=== PATIENT | female | born 1980 | race Caucasian/White ===

== ENCOUNTER 2019-06-04 07:01 | Observation (INO) | payer MEDICAID ==
[2019-06-04] MEDS ORDERED: Lactated Ringers 1,000 ML IV ONE (08:39)
[2019-06-04] MEDS ORDERED: Betamethasone Acetate/Betamethasone Sod Phosphate 30 MG/5 ML MDV IM ONE ×2 (08:47→09:15)
[2019-06-04] MEDS ORDERED: Magnesium Sulfate/Water 40 GM/1,000 ML BAG IV SCH (09:00)
[2019-06-04] MEDS ORDERED: Ampicillin 2 GM in Sodium Chloride 0.9% 100 ML IV ONE (09:00)
[2019-06-04] MEDS ORDERED: Sodium Chloride 0.9% 10 ML Syringe FLUSH PRN (09:29)
[2019-06-04] MEDS ORDERED: Azithromycin 1,000 MG in Sodium Chloride 0.9% 500 ML IV ONE (09:30)
--- NOTE | 2019-06-04 09:45 | PCM.LDHP ---
L&D History of Present Illness - General Date of Service: 06/04/19 Admit Problem/Dx: Patient Status Order with Admit Dx/Problem 06/04/19 08:50 Admission Status [Patient Status] [ADT] Routine 06/04/19 09:29 Patient Status [ADT] Routine Admission Diagnosis/Problem Admission Diagnosis/Problem labor - Related Data Allergies/Adverse Reactions: Allergies Allergy/AdvReac Type Severity Reaction Status Date / Time seasonal Allergy Sneezing Uncoded 06/01/19 01:57 Home Medications: Home Meds hydrOXYzine pamoate [Vistaril] 50 mg PO Q6H PRN 06/04/19 [History] H&P Review of Systems - Review of Systems: Review Of Systems: See Below General: Reports: No Symptoms HEENT: Reports: No Symptoms Pulmonary: Reports: No Symptoms Cardiovascular: Reports: No Symptoms Gastrointestinal: Reports: No Symptoms Genitourinary: Reports: No Symptoms Musculoskeletal: Reports: No Symptoms Skin: Reports: No Symptoms Psychiatric: Reports: No Symptoms Neurological: Reports: No Symptoms Hematologic/Lymphatic: Reports: No Symptoms Immunologic: Reports: No Symptoms L&D Exam - Exam Exam: See Below - Vital Signs Vital Signs: Last Vital Signs Temp 36.2 C 06/04/19 09:10 Pulse 77 06/04/19 09:20 Resp 16 06/04/19 09:20 BP 118/66 06/04/19 09:20 Pulse Ox 97 06/04/19 09:20 - OB Specific Contraction Intensity: Mild to Moderate Movement: Active Heart Tones: Present Presentation: Vertex - Vallejo Score Vallejo Score Cervix Position: Midposition Vallejo Score Consistency: Soft [place]lejo Score Effacement: 51-70% Vallejo Score Dilation: 1-2 cm Vallejo Score 's Station: -2 Vallejo Score Total: 7 - Exam General: Alert, Oriented HEENT: PERRLA, Conjunctiva Clear, EACs Clear, EOMI, Hearing Intact, Mucosa Moist & [place], Nares Patent, Normal Nasal Septum, Posterior Pharynx Clear, TMs Clear Neck: Supple, Trachea Midline Lungs: Clear to Auscultation, Normal Respiratory Effort Cardiovascular: Regular Rate, Regular Rhythm GI/Abdominal Exam: Normal Bowel Sounds, Soft, Non-Tender, No Organomegaly, No Distention, No Abnormal Bruit, No Mass, Pelvis Stable Rectal Exam: Normal Exam, Normal Rectal Tone Genitourinary: Normal external exam, Normal bimanual exam, Normal speculum exam , Cervical fluid, Other (pooling fluid in vaginal vault) Back Exam: Normal Inspection, Full Range of Motion Extremities: Normal Inspection, Normal Range of Motion, Non-Tender, No Pedal Edema, Normal Capillary Refill Skin: Warm, Dry, Intact Neurological: Cranial Nerves Intact, Reflexes Equal Bilateral Psychiatric: Alert, Normal Affect, Normal Mood - Patient Data Lab Results Last 24 hrs: Laboratory Results - last 24 hr 06/04/19 06/04/19 06/04/19 Range/Units 07:35 07:35 08:55 WBC 13.7 H (4.5-11.0) K/uL RBC 3.06 L (3.30-5.50) M/uL Hgb 9.0 L (12.0-15.0) g/dL Hct 27.8 L (36.0-48.0) % MCV 91 (80-98) fL MCH 29 (27-31) pg MCHC 32 (32-36) % Plt Count 273 (150-400) K/uL Neut % (Auto) 76 H (36-66) % Lymph % (Auto) 13 L (24-44) % Rains % (Auto) 9 H (2-6) % Eos % (Auto) 2 (2-4) % Baso % (Auto) 0 (0-1) % Sodium (140-148) mmol/L Potassium (3.6-5.2) mmol/L Chloride (100-108) mmol/L Carbon Dioxide (21-32) mmol/L Anion Gap (5.0-14.0) mmol/L BUN (7-18) mg/dL Creatinine (0.6-1.0) mg/dL Est Cr Clr Drug Dosing Estimated GFR (MDRD) (>60) Glucose (74-106) mg/dL Calcium (8.5-10.1) mg/dL Magnesium (1.8-2.4) mg/dL Total Bilirubin (0.2-1.0) mg/dL AST (15-37) U/L ALT (12-78) U/L Alkaline Phosphatase (46-116) U/L Total Protein (6.4-8.2) g/dL Albumin (3.4-5.0) g/dL Globulin (2.3-3.5) g/dL Albumin/Globulin Ratio (1.2-2.2) Urine Color Yellow Urine Appearance Clear Urine pH 7.0 (4.5-8.0) Ur Specific [place] 1.005 L (1.008-1.030) Urine Protein Negative (NEGATIVE) mg/dL Urine Glucose (UA) Normal (NEGATIVE) mg/dL Urine Ketones Negative (NEGATIVE) mg/dL Urine Occult Blood Negative (NEGATIVE) Urine Nitrite Negative (NEGATIVE) Urine Bilirubin Negative (NEGATIVE) Urine Urobilinogen Normal (NORMAL) mg/dL Ur Leukocyte Esterase Trace (NEGATIVE) Urine RBC 0-5 (0-5) Urine WBC 0-5 (0-5) Ur Epithelial Cells Rare Amorphous Sediment Not seen Urine Bacteria Rare Urine Mucus Not seen Membrane Rupture Positive H (NEGATIVE) 06/04/19 06/04/19 Range/Units 08:55 08:55 WBC (4.5-11.0) K/uL RBC (3.30-5.50) M/uL Hgb (12.0-15.0) g/dL Hct (36.0-48.0) % MCV (80-98) fL MCH (27-31) pg MCHC (32-36) % Plt Count (150-400) K/uL Neut % (Auto) (36-66) % Lymph % (Auto) (24-44) % Rains % (Auto) (2-6) % Eos % (Auto) (2-4) % Baso % (Auto) (0-1) % Sodium 138 L (140-148) mmol/L Potassium 3.2 L (3.6-5.2) mmol/L Chloride 106 (100-108) mmol/L Carbon Dioxide 25 (21-32) mmol/L Anion Gap 10.2 (5.0-14.0) mmol/L BUN 4 L (7-18) mg/dL Creatinine 0.6 (0.6-1.0) mg/dL Est Cr Clr Drug Dosing TNP Estimated GFR (MDRD) > 60 (>60) Glucose 69 L (74-106) mg/dL Calcium 8.5 (8.5-10.1) mg/dL Magnesium 1.6 L (1.8-2.4) mg/dL Total Bilirubin 0.4 (0.2-1.0) mg/dL AST 17 (15-37) U/L ALT 23 (12-78) U/L Alkaline Phosphatase 94 (46-116) U/L Total Protein 5.7 L (6.4-8.2) g/dL Albumin 2.1 L (3.4-5.0) g/dL Globulin 3.6 H (2.3-3.5) g/dL Albumin/Globulin Ratio 0.6 L (1.2-2.2) Urine Color Urine Appearance Urine pH (4.5-8.0) Ur Specific [place] (1.008-1.030) Urine Protein (NEGATIVE) mg/dL Urine Glucose (UA) (NEGATIVE) mg/dL Urine Ketones (NEGATIVE) mg/dL Urine Occult Blood (NEGATIVE) Urine Nitrite (NEGATIVE) Urine Bilirubin (NEGATIVE) Urine Urobilinogen (NORMAL) mg/dL Ur Leukocyte Esterase (NEGATIVE) Urine RBC (0-5) Urine WBC (0-5) Ur Epithelial Cells Amorphous Sediment Urine Bacteria Urine Mucus Membrane Rupture (NEGATIVE) Result Diagrams: 06/04/19 08:55 06/04/19 08:55 - Problem List (1) premature rupture of membranes SNOMED Code(s): 490330062, 476648109 ICD Code: O42.919 - PRETRM YVROSE ROM, UNSP TIME BETW RUPT AND ONST LABR, UNSP TRI Status: Acute Current Visit: Yes (2) Gastroschisis, , affecting care of mother, antepartum SNOMED Code(s): 882526652, 817943458 ICD Code: O35.8XX0 - MATERNAL CARE FOR OTH ABNORMALITY AND DAMAGE, UNSP Status: Acute Current Visit: Yes (3) uterine contractions in third trimester, antepartum SNOMED Code(s): 012581155, 027175000 ICD Code: O47.03 - FALSE LABOR BEFORE 37 COMPLETED WEEKS OF GEST, THIRD TRI Status: Acute Current Visit: No (4) care insufficient SNOMED Code(s): 8835252612997 ICD Code: O09.30 - SUPRVSN OF PREG W INSUFFICIENT ANTENAT CARE, UNSP TRIMESTER Status: Acute Current Visit: Yes (5) Drug abuse during SNOMED Code(s): 590726107 ICD Code: O99.320 - DRUG USE COMPLICATING , UNSPECIFIED TRIMESTER; F19.10 - OTHER PSYCHOACTIVE SUBSTANCE ABUSE, UNCOMPLICATED Status: Acute Current Visit: Yes Problem List Initiated/Reviewed/Updated: Yes Orders Last 24hrs: Active Orders 24 hr Category Date Time Status Admission Status [Patient Status] [ADT] Routine ADT 06/04/19 08:50 Active Patient Status [ADT] Routine ADT 06/04/19 09:29 Ordered Ambulate [RC] PER UNIT ROUTINE Care 06/04/19 09:29 Ordered Communication Order [RC] ASDIRECTED Care 06/04/19 09:29 Ordered Dietary Supplements [RC] BIDMEALS Care 06/04/19 08:52 Active Heart Tones [RC] PER UNIT ROUTINE Care 06/04/19 09:29 Ordered Non Stress Test [RC] Click to Edit Care 06/04/19 09:29 Ordered Insert Dc Catheter [Insert Urinary Catheter] [OM.PC] Care 06/04/19 08:45 Ordered Q24H Notify Provider Vital Signs [RC] PRN Care 06/04/19 09:29 Ordered Notify Provider [RC] PRN Care 06/04/19 09:29 Ordered OB Check [OM.PC] Click to Edit Care 06/04/19 07:25 Ordered Urinary Catheter Assessment [RC] ASDIRECTED Care 06/04/19 08:40 Active VTE/DVT Education [RC] Click to Edit Care 06/04/19 09:38 Ordered Vital Signs [RC] PER UNIT ROUTINE Care 06/04/19 09:29 Ordered Nothing Per Oral Diet [DIET] Diet 06/04/19 Breakfast Ordered Azithromycin [Zithromax] 1,000 mg Med 06/04/19 09:30 Active Sodium Chloride 0.9% [Normal Saline] 500 ml IV ONETIME Magnesium Sulfate/Water [Magnesium Sulfate in Water Med 06/04/19 09:00 Active Premix] 40 gm in 1,000 ml IV ASDIRECTED Sodium Chloride 0.9% [Saline Flush] Med 06/04/19 09:29 Ordered 10 ml FLUSH ASDIRECTED PRN DVT/VTE Prophylaxis Reflex [OM.PC] Routine Oth 06/04/19 09:29 Ordered Saline Lock Insert [OM.PC] Routine Oth 06/04/19 09:29 Ordered Resuscitation Status Routine Resus Stat 06/04/19 09:29 Ordered Medication Orders Magnesium Sulfate (Magnesium Sulfate In Water Premix) 40 gm in 1,000 mls @ 50 mls/hr IV ASDIRECTED JESSI Last Admin: 06/04/19 09:13 Dose: 50 mls/hr Azithromycin 1,000 mg/ Sodium (Chloride) 500 mls @ 500 mls/hr IV ONETIME ONE Stop: 06/04/19 10:29 Last Admin: 06/04/19 09:10 Dose: 500 mls/hr Sodium Chloride (Saline Flush) 10 ml FLUSH ASDIRECTED PRN PRN Reason: Keep Vein Open Assessment/Plan Comment:: 06/04/2019 38 yo here at 31 5/7 per late ultrasound with PPROM at home this am. She states she woke up to bleeding, mucous, large piece of bloody mucous, then slow leaking of clear bloody fluid. When she got to hospital was noted to be burt irregularly, amnisure was positive. Speculum exam showed pooling of amniotic fluid in vaginal vault, cervix slightly dilated SVE-midline, 1-2 external os, 50% effaced FHTs-category one Contractions irregular Plan- Continue to monitor labor Continue to monitor FHTs Plan to transfer once accepting facility
--- NOTE | 2019-06-04 09:53 | PCM.PNLD ---
Labor Progress Note - VS & Meds Vital Signs: Last Vital Signs Temp 36.2 C 06/04/19 09:10 Pulse 77 06/04/19 09:20 Resp 16 06/04/19 09:20 BP 118/66 06/04/19 09:20 Pulse Ox 97 06/04/19 09:20 Active Medications: Current Medications Magnesium Sulfate (Magnesium Sulfate In Water Premix) 40 gm in 1,000 mls @ 50 mls/hr IV ASDIRECTED JESSI Last Admin: 06/04/19 09:13 Dose: 50 mls/hr Azithromycin 1,000 mg/ Sodium (Chloride) 500 mls @ 500 mls/hr IV ONETIME ONE Stop: 06/04/19 10:29 Last Admin: 06/04/19 09:10 Dose: 500 mls/hr Sodium Chloride (Saline Flush) 10 ml FLUSH ASDIRECTED PRN PRN Reason: Keep Vein Open Discontinued Medications Betamethasone Acet/Betameth SodPhos (Celestone Soluspan 6 Mg/Ml) 12 mg IM ONETIME ONE Stop: 06/04/19 08:48 Last Admin: 06/04/19 09:06 Dose: 12 mg Betamethasone Acet/Betameth SodPhos (Celestone Soluspan 6 Mg/Ml) 12 mg IM ONETIME ONE Stop: 06/04/19 09:16 Last Admin: 06/04/19 09:12 Dose: Not Given Lactated Ringer's (Ringers, Lactated) 1,000 mls @ 999 mls/hr IV BOLUS ONE Stop: 06/04/19 09:39 Last Admin: 06/04/19 09:10 Dose: 999 mls/hr Magnesium Sulfate 6 gm/ Sodium (Chloride) 112 mls @ 224 mls/hr IV ONETIME ONE Stop: 06/04/19 09:29 Last Admin: 06/04/19 09:06 Dose: 224 mls/hr Ampicillin Sodium 2 gm/ Sodium (Chloride) 100 mls @ 200 mls/hr IV ONETIME ONE Stop: 06/04/19 09:29 Last Admin: 06/04/19 09:10 Dose: 200 mls/hr - Uterine Contractions Contraction Intensity: Mild to Moderate - Labor Progress (Free Text) Labor Progress: 06/04/2019 Called MFM at [facility]-Dr. Canales accepting Orders received from her Patient to fly do to high risk Plan- Continue to monitor labor Continue to monitor FHTS Bed[facility] Place urinary catheter Start IV bolus Start second IV for medication administrations Start magnesium bolus for neuro protection Start azithromycin and ampicillin Give first dose of betamethasone now Set up for air care for transport stat CBC, CMP, magnesium level stat
--- NOTE | 2019-06-04 09:56 | PCM.PNLD ---
Labor Progress Note - VS & Meds Vital Signs: Last Vital Signs Temp 36.2 C 06/04/19 09:10 Pulse 77 06/04/19 09:20 Resp 16 06/04/19 09:20 BP 118/66 06/04/19 09:20 Pulse Ox 97 06/04/19 09:20 Active Medications: Current Medications Magnesium Sulfate (Magnesium Sulfate In Water Premix) 40 gm in 1,000 mls @ 50 mls/hr IV ASDIRECTED JESSI Last Admin: 06/04/19 09:13 Dose: 50 mls/hr Azithromycin 1,000 mg/ Sodium (Chloride) 500 mls @ 500 mls/hr IV ONETIME ONE Stop: 06/04/19 10:29 Last Admin: 06/04/19 09:10 Dose: 500 mls/hr Sodium Chloride (Saline Flush) 10 ml FLUSH ASDIRECTED PRN PRN Reason: Keep Vein Open Discontinued Medications Betamethasone Acet/Betameth SodPhos (Celestone Soluspan 6 Mg/Ml) 12 mg IM ONETIME ONE Stop: 06/04/19 08:48 Last Admin: 06/04/19 09:06 Dose: 12 mg Betamethasone Acet/Betameth SodPhos (Celestone Soluspan 6 Mg/Ml) 12 mg IM ONETIME ONE Stop: 06/04/19 09:16 Last Admin: 06/04/19 09:12 Dose: Not Given Lactated Ringer's (Ringers, Lactated) 1,000 mls @ 999 mls/hr IV BOLUS ONE Stop: 06/04/19 09:39 Last Admin: 06/04/19 09:10 Dose: 999 mls/hr Magnesium Sulfate 6 gm/ Sodium (Chloride) 112 mls @ 224 mls/hr IV ONETIME ONE Stop: 06/04/19 09:29 Last Admin: 06/04/19 09:06 Dose: 224 mls/hr Ampicillin Sodium 2 gm/ Sodium (Chloride) 100 mls @ 200 mls/hr IV ONETIME ONE Stop: 06/04/19 09:29 Last Admin: 06/04/19 09:10 Dose: 200 mls/hr - Uterine Contractions Contraction Intensity: Mild to Moderate - Labor Progress (Free Text) Labor Progress: 06/04/2019 @ 0906 MFM at [facility] called and stated they now can not accept due to the fact their neonatolgy will not perform gastroschisis surgery so patient needs to go to [facility] instead. Called [facility] Dr. Houston accepted will now fly to [facility]. Dr. Houston states to continue with original orders from [facility].
--- NOTE | 2019-06-04 09:57 | PCM.PNLD ---
Labor Progress Note - VS & Meds Vital Signs: Last Vital Signs Temp 36.2 C 06/04/19 09:10 Pulse 77 06/04/19 09:20 Resp 16 06/04/19 09:20 BP 118/66 06/04/19 09:20 Pulse Ox 97 06/04/19 09:20 Active Medications: Current Medications Magnesium Sulfate (Magnesium Sulfate In Water Premix) 40 gm in 1,000 mls @ 50 mls/hr IV ASDIRECTED JESSI Last Admin: 06/04/19 09:13 Dose: 50 mls/hr Azithromycin 1,000 mg/ Sodium (Chloride) 500 mls @ 500 mls/hr IV ONETIME ONE Stop: 06/04/19 10:29 Last Admin: 06/04/19 09:10 Dose: 500 mls/hr Sodium Chloride (Saline Flush) 10 ml FLUSH ASDIRECTED PRN PRN Reason: Keep Vein Open Discontinued Medications Betamethasone Acet/Betameth SodPhos (Celestone Soluspan 6 Mg/Ml) 12 mg IM ONETIME ONE Stop: 06/04/19 08:48 Last Admin: 06/04/19 09:06 Dose: 12 mg Betamethasone Acet/Betameth SodPhos (Celestone Soluspan 6 Mg/Ml) 12 mg IM ONETIME ONE Stop: 06/04/19 09:16 Last Admin: 06/04/19 09:12 Dose: Not Given Lactated Ringer's (Ringers, Lactated) 1,000 mls @ 999 mls/hr IV BOLUS ONE Stop: 06/04/19 09:39 Last Admin: 06/04/19 09:10 Dose: 999 mls/hr Magnesium Sulfate 6 gm/ Sodium (Chloride) 112 mls @ 224 mls/hr IV ONETIME ONE Stop: 06/04/19 09:29 Last Admin: 06/04/19 09:06 Dose: 224 mls/hr Ampicillin Sodium 2 gm/ Sodium (Chloride) 100 mls @ 200 mls/hr IV ONETIME ONE Stop: 06/04/19 09:29 Last Admin: 06/04/19 09:10 Dose: 200 mls/hr - Uterine Contractions Contraction Intensity: Mild to Moderate - Labor Progress (Free Text) Labor Progress: 06/04/2019 @ 0925 Patient care turned over to ambulance crew, in route to airport for aircare to [facility]
== END 2019-06-04 09:30 ==
LOC: JP.OBCHECK 07:01 → JP.OB 08:52
PROVIDERS: ADMIT Advanced Practice Midwife; ATTEND Advanced Practice Midwife
DX: O42.913 Preterm premature rupture of membranes, unspecified as to length of time between rupture and onset of labor, third trimester (principal); O35.8XX0 Maternal care for other (suspected) fetal abnormality and damage, not applicable or unspecified; O09.33 Supervision of pregnancy with insufficient antenatal care, third trimester; O99.323 Drug use complicating pregnancy, third trimester; F19.10 Other psychoactive substance abuse, uncomplicated; Z3A.31 31 weeks gestation of pregnancy
CPT/HCPCS: 36415; 51702; 80053; 80305; 81001; 83735; 84112; 85025; 96365; 96368; 96372; G0378; J0290; J0456; J0702; J3475; J7030; J7040; J7120; 99211